=== PATIENT | male | born 1960 | race Caucasian/White ===

== ENCOUNTER → 2018-08-26 | Outpatient (CLI) | payer OTHER | LOC: CAT 15:24 | DX: Z13.6 Encounter for screening for cardiovascular disorders (principal); I25.10 Atherosclerotic heart disease of native coronary artery without angina pectoris; E78.00 Pure hypercholesterolemia, unspecified ==

== ENCOUNTER → 2020-06-21 | Outpatient (CLI) | payer BC | LOC: SJCVCIMAG 08:54 | PROVIDERS: ATTEND Internal Medicine Cardiovascular Disease | DX: R93.1 Abnormal findings on diagnostic imaging of heart and coronary circulation (principal); R07.89 Other chest pain; Z87.891 Personal history of nicotine dependence; R06.00 Dyspnea, unspecified; R53.83 Other fatigue ==

== ENCOUNTER → 2020-11-24 | Outpatient (CLI) | payer OTHER ==
[~2020-11-24] MED LIST: DAILY VALUE1 EAC1 PO; FLONASE 0.05%50 MCG NARES; ROSUVASTATIN CA20 MG PO; SINGULAIR 10 MG10 M1 PO; TADALAFIL5 M1 PO; TAMSULOSIN HCL0.4 MG PO; VITAMIN D325 MC3 PO; ZINC50 M1 PO
[2020-11-24 14:04] LABS: HEMATOCRIT 42.6 % (42.0-52.0); HEMOGLOBIN 14.7 gm/dL (14.0-18.0); MCH 30.6 pg (26.0-34.0); MCHC 34.5 g/dL (28.0-37.0); MCV 88.8 fL (80.0-100.0); RBC 4.8 mil/uL (4.50-6.00); RDW 13.5 % (10.5-14.5); WBC 9.9 thou/uL (4.0-11.0)
[2020-11-24 14:04] LABS: URINE BILIRUBIN NEGATIVE (Negative); URINE BLOOD NEGATIVE (Negative); URINE CLARITY CLEAR; URINE COLOR YELLOW; URINE GLUCOSE-RANDOM* NEGATIVE (Negative); URINE KETONES NEGATIVE (Negative); URINE LEUKOCYTES-REFLEX NEGATIVE (Negative); URINE NITRITE-REFLEX NEGATIVE (Negative); URINE PROTEIN (DIPSTICK) NEGATIVE (Negative); URINE SPECIFIC GRAVITY >= 1.030 (1.005-1.035); URINE UROBILINOGEN 0.2 E.U./dl (0.2-1.0)
[2020-11-24 14:12] LABS: ALBUMIN 4.5 g/dL (3.4-5.0); CALCIUM 10.2 mg/dL (8.5-10.1); CREATININE 1.2 mg/dL (0.7-1.3); POTASSIUM 4.6 mmol/L (3.5-5.1)
[2020-11-24 14:21] LABS: INR 0.99; PROTIME 10.8 Seconds (10.5-12.1)
== END ==
LOC: PAC 12:08
PROVIDERS: ATTEND Orthopaedic Surgery
DX: Z01.812 Encounter for preprocedural laboratory examination (principal); M17.11 Unilateral primary osteoarthritis, right knee; Z91.048 Other nonmedicinal substance allergy status

== ENCOUNTER 2020-12-06 11:19 | Observation (INO) | payer OTHER ==
[~2020-12-06] VITALS: Ht 167.6 cm; Wt 84.4 kg
--- NOTE | ~2020-12-06 | O ---
[facility] [place] [place] [address] OPERATIVE REPORT Name: SELENA WILEY Room #: 441-P ADM IN M.R.#: [id number] Admission: 12/06/20 Attend Phys: Roe Marrero MD Discharge: Date of : 62 Report #: [id number] THIS REPORT FOR: cc: Aislinn Claire Karen K. RNP Abraham, Scott M. MD ~ DATE OF SERVICE: 12/06/2020 PREOPERATIVE DIAGNOSIS: Right knee osteoarthritis. POSTOPERATIVE DIAGNOSIS: Right knee osteoarthritis. PROCEDURE: Right total knee arthroplasty using Navio robotic assistance. SURGEON: Roe Marrero M.D. SALES DEVELOPER: Ruby Dumont PA-C. INDICATION FOR SALES DEVELOPER: Throughout the case, extensive retraction, manipulation of the knee was required. This was supported to me by my assistant inventory manager. ANESTHESIA: LMA with adductor canal block. IMPLANTS: Li [employer] Nephew size 8 Journey II BCS Oxinium femur, size 7 tibia, size 11 constrained polyethylene and size 35 patella. TOURNIQUET TIME: 58 minutes. ESTIMATED BLOOD LOSS: 25 mL COMPLICATIONS: None. SPECIMENS: None. CONDITION UPON LEAVING THE OR: Stable. INDICATIONS FOR PROCEDURE: The patient is a 60-year-old gentleman with severe right knee osteoarthritis who failed conservative measures for this, and after discussion with him, he elected for right total knee arthroplasty. DESCRIPTION OF PROCEDURE: Risks, benefits, alternatives, complications were discussed in detail with the patient including but not limited to risk of anesthesia; risk of damage to nerves, arteries, blood vessels; risk for infection, bleeding; risk for DVT, PE; need for reoperation. Informed consent was obtained from the patient. The right knee was appropriately marked in the [address] [address] OPERATIVE REPORT Name: SELENA WILEY ZACK Room #: 441-P [facility] IN M.R.#: [id number] Admission: 12/06/20 Attend Phys: Roe Marrero MD Discharge: Date of : 62 Report #: [id number] preoperative holding area. IV Ancef was given for preoperative antibiotics. He was brought to the operating room and placed in supine position on the operating room table. LMA anesthesia was induced without complication. Tourniquet was placed on the right thigh. Right lower extremity was prepped and draped in normal sterile fashion. Timeout was performed properly identifying the patient and procedure as well as the instrumentation and implants. All in the operating room in agreement. Right lower extremity was exsanguinated, tourniquet was inflated. Tourniquet time was 58 minutes. Standard midline approach to the knee was made with 10 blade through the skin. Dissection was taken down sharply to the fascia and deep flaps were developed medially and laterally. Fresh 10 blade was used to make a medial parapatellar arthrotomy and the knee was inspected. There was severe medial compartment osteoarthritis with moderate lateral and patellofemoral compartment osteoarthritis. ACL and PCL were removed sharply. Reference pins were placed in the femur and the tibia. The knee was digitally mapped using the [facility] robotic system. Intraoperative plan was made. We sized the size 8 femur, the size 7 tibia, and a 10 spacer. After acceptance of the intraoperative plan, distal femoral cut was made with Navio bur. The distal femoral cutting block was pinned in place and chamfer cuts were made. Attention was turned to the tibia. Remainder of the menisci removed with Bovie cautery. Tibial resection guide was pinned in place using Navio for placement. Tibial resection was made. Medial osteophyte was removed from the tibia. Flexion and extension gaps were checked and found to be tight medially and extension and limited medial release was performed using the pie crust technique and this balanced the knee well. Tibia sized, found to be a size 7. A size 7 tibial trial was placed, pinned and punched. Size 8 femoral trial was placed, box cut was made. This was then trialed with a size 10 and then a size 11 polyethylene. Size 11 polyethylene demonstrated 1-2 mm laxity medially throughout range of motion of the knee. There was up to 3 mm laterally. It was felt we can make up for this with a constrained implant. A 9 mm of bone was resected from the posterior surface of the patella and a size 35 patellar trial button was placed. Knee was taken through range of motion, found to be stable, found to have good patellar tracking. Trial components were removed. Bone ends were thoroughly irrigated with normal saline. Final size 7 tibia, size 8 Journey II BCS Oxinium femur, and a size 35 patella were cemented in place using standard cementation techniques. While the cement cured, a periarticular injection consisting of morphine, ropivacaine, epinephrine, and Toradol was placed around the knee joint capsule. After the cement cured, tourniquet was deflated. Hemostasis was obtained with Bovie cautery. Final size 11 constrained polyethylene was placed. A gram of vancomycin was placed deep in the joint. The fascia was closed with 0 Vicryl. Skin was closed with 2-0 Vicryl, 3-0 Monocryl. Dermabond and a YUNIER dressing was applied. The patient [address] [address] OPERATIVE REPORT Name: SELENA WILEY Room #: 441-P ADM IN M.R.#: [id number] Admission: 12/06/20 Attend Phys: Roe Marrero MD Discharge: Date of : 62 Report #: [id number] tolerated this procedure well and went to recovery room under care of anesthesia postoperatively. By: [id number] Roe Marrero MD /nt
[2020-12-06 14:52] VITALS: BP 145/90
--- NOTE | 2020-12-06 18:48 | NUR ---
Admitted to floor @ 1640. A/O x 4. On 2L 02 via nasal cannula. D5 0.45 NS @ 100 mls infusing. Right knee Replacement and has polar pack to knee. Jennifer dressing-not observed told in report. Very [place]- Wears bilateral hearing aids. Right hand IV. Regular diet. Teds on and SCDs on. Morphine given 2 mg.
[2020-12-06 19:53] VITALS: BP 127/78
--- NOTE | 2020-12-07 02:52 | NUR ---
PT IS A/O X4 AND IS UP WITH ASSISTANCE WITH WALKER AND GB. PLEASANT AND COOPERATIVE. C/O PAIN TO RIGHT KNEE. PRN PAIN MEDICATION GIVEN DIRECTED. VSS. AFEBRILE. MEDICATIONS GIVEN PER MAR. USES URINAL AT THE BEDSIDE. NO BM THIS SHIFT. FALL PRECAUTIONS IMPLEMENTED, CALL LIGHT IS WITHIN REACH.
[2020-12-07 04:21] VITALS: BP 112/78
[2020-12-07 07:10] VITALS: BP 116/74
--- NOTE | 2020-12-07 10:33 | NUR ---
Assumed care of pt at 0700. Pt a&ox4. Pain controlled with prn pain medications. Dressing c/d/i. Up SBA with gait-belt and walker. Pt worked with physical therapy this am. Likely discharging to home today. Polar care in place. Family at bedside. Call light within reach. Fall precautions in place. Will continue to monitor.
--- NOTE | 2020-12-07 11:09 | NUR ---
ASSESSMENT: CM REVIEWED CHART AND SPOKE WITH PATIENT AT THE BEDSIDE. PT IS ALERT AND ORIENTED X4. PT IS S/P R TKA. PT REPORTS LIVING IN A TWO STORY HOUSE BUT REPORTS HAVING ONE STEP TO ENTER THE HOME AND CAN STAY ON THE BEDROOM ON THE MAIN LEVEL. PT REPORTS HAVING A WALKER AT HOME TO ASSIST AT DISCHARGE. PT REPORTS HAVING A BUILT IN SHOWER CHAIR AT HOME. PT LIVES WITH HIS WHO IS SUPPORTIVE AND CAN HELP IF NEEDED. PT REPORTS HE PLANS ON DOING OUTPATIENT THERAPY AT [facility]. CM DISCUSSED ROLE. PT DOES NOT ANTICIPATE HAVING ANY NEEDS FROM CM . CM WILL CONTINUE TO FOLLOW TO ASSIST NEEDED. AWAITING THERAPY EVALS.
[2020-12-07 12:38] VITALS: BP 116/74
== END 2020-12-07 13:28 | disposition home or self-care (01) ==
LOC: OR 11:19 → TBA 11:30 → OR 12:09 → 4S 17:25 → OR 17:25 → 4S 17:25
PROVIDERS: ADMIT Orthopaedic Surgery; ATTEND Orthopaedic Surgery
DX: M17.11 Unilateral primary osteoarthritis, right knee (principal); Z20.822 Contact with and (suspected) exposure to COVID-19
CPT/HCPCS: 10102; 50010; 50101; 50415; 50954; 51130; 51225; 51320; 53000; 53078; 53365; 54118; 56527; 56528; 57095; 57103; 57110; 57127; 57180; 62110; 62900; 64043; 65060; 70005